=== PATIENT | female | born 1965 | race Caucasian/White ===

== ENCOUNTER 2020-08-10 11:19 | Emergency (ER) | payer MEDICAID ==
[~2020-08-10] VITALS: Ht 165.1 cm; Wt 70.3 kg
[2020-08-10 11:19] VITALS: BP_SYST 150
--- NOTE | 2020-08-10 11:19 | NUR ---
BROUGHT IN BY [facility], PLACED IN BED #1 AND TRIAGED. REPORT GIVEN TO LON
--- NOTE | 2020-08-10 11:25 | NUR ---
[facility]IB[facility]. PER FACILITY, PT HAS TREMORS AND TODAY WITH SLOWER TO RESPOND AFTER SHAKING EPISODE. PT ARRIVES ALTERED, EYES OPEN, NON-VERBAL, GTUBE IN PLACE, CONTRACTURES. NO TREMORS UPON ARRIVAL, V/S STABLE
--- NOTE | 2020-08-10 11:40 | NUR ---
ER DR. COUGHLIN AT THE BEDSIDE EXAMINING PT
[2020-08-10] MEDS ORDERED: NACL 0.9% 1,000 ML IV ONE (12:00)
[2020-08-10 12:25] LABS: CALCIUM 9.2 mg/dL (8.4-11.0); CREATININE 0.84 mg/dL (0.55-1.30); POTASSIUM 3.4 mmol/L (3.5-5.1)
[2020-08-10 12:30] LABS: BASOPHILS % (AUTO) 0.5 % (0.0-2.0); EOSINOPHILS # (AUTO) 0.1 K/uL (0.0-0.4); EOSINOPHILS % (AUTO) 1.3 % (0.0-4.0); HEMATOCRIT 41.3 % (36-48); HEMOGLOBIN 13.7 g/dL (12.0-16.0); LYMPHOCYTES # (AUTO) 2.5 K/uL (1.0-5.5); LYMPHOCYTES % (AUTO) 27.4 % (20.5-51.5); MEAN CORPUSCULAR HEMOGLOBIN 31 pg (27-31); MEAN CORPUSCULAR HGB CONC 33 % (32-36); MEAN CORPUSCULAR VOLUME 93 fL (79.0-98.0); MONOCYTES # (AUTO) 0.8 K/uL (0.0-1.0); MONOCYTES % (AUTO) 8.6 % (1.7-9.3); NEUTROPHILS # (AUTO) 5.7 K/uL (1.8-7.7); NEUTROPHILS % (AUTO) 62.2 % (40.0-70.0); PLATELET COUNT (AUTO) 244 K/uL (130-430); RED BLOOD CELL COUNT(AUTO) 4.45 MIL/uL (4.2-6.2); RED CELL DISTRIBUTION WIDTH 12.8 % (9.0-15.0); WHITE BLOOD COUNT (AUTO) 9.2 K/uL (4.8-10.8)
[2020-08-10 12:31] LABS: ALBUMIN 3.5 g/dL (3.4-4.8); TOTAL BILIRUBIN 0.3 mg/dL (0.0-1.0)
[2020-08-10 12:35] LABS: BILIRUBIN,URINE NEGATIVE (NEGATIVE); BLOOD, URINE 2+ (NEGATIVE); CLARITY/URINE CLOUDY (CLEAR); COLOR,URINE YELLOW (YELLOW); GLUCOSE,URINE NEGATIVE (NEGATIVE); KETONES,URINE TRACE (NEGATIVE); LEUKOCYTE ESTERASE ,URINE NEGATIVE (NEGATIVE); NITRITE, URINE POSITIVE (NEGATIVE); PH,URINE 5.5 (5.0-8.0); PROTEIN URINE TRACE (NEGATIVE); UROBILINOGEN,URINE 0.2 (0.2-1.0)
[2020-08-10 12:45] LABS: BACTERIA,URINE MANY /HPF (None Seen)
--- NOTE | 2020-08-10 12:49 | NUR ---
Patient transported to radiology via GURNEY, accompanied by STAFF.
[2020-08-10] MEDS ORDERED: cefTRIAXone 1 GM IVPB PREMIX 50 ML IV ONE (13:00)
--- NOTE | 2020-08-10 13:52 | NUR ---
family at bedside, abx infusing, skin warm and dry.
--- NOTE | 2020-08-10 14:49 | NUR ---
LAB AT THE BEDSIDE FOR BLOOD DRAW
[2020-08-10] MEDS ORDERED: CEPH250C PO (16:41)
[2020-08-10 17:07] VITALS: BP_SYST 124
--- NOTE | 2020-08-10 17:17 | NUR ---
Patient given written and verbal discharge instructions and verbalizes understanding. ER MD discussed with patient the results and treatment provided. Patient in stable condition. ID arm band removed. IV catheter removed intact and dressing applied, no active bleeding. Rx of KEFLEX given. Patient educated on pain management and to follow up with PMD. Pain 0/10. Opportunity for questions provided and answered. Medication side effect fact sheet provided. REPORTS GIVEN TO DEB @ [facility] [place] FOR TRANSPORT BACK
== END 2020-08-10 17:17 | disposition home or self-care (01) ==
LOC: SED 11:19
DX: R56.9 Unspecified convulsions (principal); N39.0 Urinary tract infection, site not specified; Z79.899 Other long term (current) drug therapy
CPT/HCPCS: 36415; 70450; 71045; 76376; 80053; 81000; 82140; 84484; 85025; 85610; 85730; 87086; 93005; 96361; 96365; 99285; J0696; J7030